=== PATIENT | male | born 1995 | race African-American/Black ===

== ENCOUNTER 2017-01-04 13:38 | Emergency (ER) | payer MEDICAID, OTHER ==
[~2017-01-04] VITALS: Ht 177.8 cm; Wt 86.2 kg
--- NOTE | 2017-01-04 15:00 | REP ---
LEFT KNEE SERIES: Five views of the left knee are performed. There is no evidence of acute fracture or dislocation. There an old healed fracture of the proximal left fibula. Rounded calcific density along the medial malleolus may represent an old fracture or accessory ossicle. IMPRESSION: No acute fracture or dislocation. Signed by Troy Chau MD 01/04/2017 03:57 P
[2017-01-04] MEDS ORDERED: IBUP80TA PO (15:18)
[2017-01-04 16:00] VITALS: BP 121/71
== END 2017-01-04 16:00 | disposition home or self-care (01) ==
LOC: M ED 15:13
DX: S83.92XA Sprain of unspecified site of left knee, initial encounter (principal); W10.8XXA Fall (on) (from) other stairs and steps, initial encounter; Y92.89 Other specified places as the place of occurrence of the external cause; Y93.01 Activity, walking, marching and hiking; Y99.9 Unspecified external cause status

== ENCOUNTER 2018-10-15 18:21 | Emergency (ER) | payer OTHER, SELFPAY ==
[~2018-10-15] VITALS: Ht 180.3 cm; Wt 90.9 kg
[~2018-10-15 18:21] MED LIST: IBUP80TA PO
[2018-10-15 19:17] LABS: BASO # 0.1 10^3/uL (0.0-0.2); BASO % 0.8 % (0.0-1.0); EOS # 0.3 10^3/uL (0.0-0.50); EOS % 5.1 % (0.0-3.0); HEMATOCRIT 50.8 % (42.0-52.0); HEMOGLOBIN 16.8 g/dl (13.5-17.5); LYMPH # 1.7 10^3/uL (1.5-6.5); LYMPH % 25.2 % (24.0-44.0); MEAN CORPUSCULAR HEMOGLOBIN 30.7 pg (27.0-33.0); MEAN CORPUSCULAR HGB CONC 33.1 g/dl (32.0-36.5); MEAN CORPUSCULAR VOLUME 92.9 fl (80.0-96.0); MONO # 0.7 10^3/uL (0.0-0.8); MONO % 10.1 % (0.0-5.0); NEUTROPHILS # 3.9 10^3/uL (1.8-7.7); NEUTROPHILS % 58.5 % (36.0-66.0); PLATELET COUNT, AUTOMATED 206 10^3/uL (150-450); RED BLOOD COUNT 5.47 10^6/uL (4.30-6.10); WHITE BLOOD COUNT 6.7 10^3/uL (4.0-10.0)
[2018-10-15] MEDS ORDERED: CEPHALEXIN 500 MG CAP PO ONE (19:30)
[2018-10-15] MEDS ORDERED: ADACEL/BOOSTRIX VACCINE (DIPHTH/PERTUSS/ACELL/TETANUS)0.5ML SYR (90715) IM ONE (19:30)
[2018-10-15] MEDS ORDERED: CLINDAMYCIN 900 MG in APPROPRIATE DILUENT 1 EA IV ONE (19:30)
[2018-10-15] MEDS ORDERED: NS 1,000 ML IV ONE (19:30)
[2018-10-15 19:42] LABS: BLOOD UREA NITROGEN 15 MG/DL (7-18); C REACTIVE PROTEIN QUANTITATIV < 0.30 MG/DL (0.00-0.30); CALCIUM LEVEL 8.9 MG/DL (8.5-10.1); CARBON DIOXIDE LEVEL 31 MEQ/L (21-32); CHLORIDE LEVEL 104 MEQ/L (98-107); CREATININE FOR GFR 1.22 MG/DL (0.70-1.30); GLOMERULAR FILTRATION RATE > 60.0 (>60); GLUCOSE, FASTING 87 MG/DL (70-100); POTASSIUM SERUM 4.4 MEQ/L (3.5-5.1); SODIUM LEVEL 139 MEQ/L (136-145)
[2018-10-15 19:43] LABS: ERYTHROCYTE SEDIMENTATION RATE 1 mm/hr (0-15)
[2018-10-15] MEDS ORDERED: KEFL500C17 PO (20:10)
[2018-10-15 20:35] VITALS: BP 126/56
== END 2018-10-15 20:39 | disposition home or self-care (01) ==
LOC: M ED 18:21
DX: L08.89 Other specified local infections of the skin and subcutaneous tissue (principal); F17.210 Nicotine dependence, cigarettes, uncomplicated

== ENCOUNTER 2019-04-09 23:51 | Emergency (ER) | payer SELFPAY ==
[~2019-04-09] VITALS: Ht 180.3 cm; Wt 90.9 kg
[~2019-04-09 23:51] MED LIST changes: +KEFL500C17 PO
[2019-04-10 00:33] LABS: HEMATOCRIT 49.7 % (42.0-52.0); HEMOGLOBIN 17.1 g/dl (13.5-17.5); MEAN CORPUSCULAR HEMOGLOBIN 31.9 pg (27.0-33.0); MEAN CORPUSCULAR HGB CONC 34.4 g/dl (32.0-36.5); MEAN CORPUSCULAR VOLUME 92.7 fl (80.0-96.0); PLATELET COUNT, AUTOMATED 178 10^3/uL (150-450); RED BLOOD COUNT 5.36 10^6/uL (4.30-6.10); WHITE BLOOD COUNT 6.9 10^3/uL (4.0-10.0)
[2019-04-10 01:05] LABS: ACETAMINOPHEN LEVEL < 2.0 UG/ML (10.0-30.0); ALBUMIN 4.3 GM/DL (3.2-5.2); ALT/SGPT 25 U/L (12-78); BILIRUBIN,DIRECT 0.2 MG/DL (0.0-0.2); BILIRUBIN,TOTAL 0.3 MG/DL (0.2-1.0); BLOOD UREA NITROGEN 13 MG/DL (7-18); CALCIUM LEVEL 8.2 MG/DL (8.5-10.1); CARBON DIOXIDE LEVEL 25 MEQ/L (21-32); CHLORIDE LEVEL 104 MEQ/L (98-107); CREATININE FOR GFR 1.13 MG/DL (0.70-1.30); ETHYL ALCOHOL (ETHANOL) 0.312 % (0.000-0.010); GLOMERULAR FILTRATION RATE > 60.0 (>60); GLUCOSE, FASTING 96 MG/DL (70-100); POTASSIUM SERUM 3.8 MEQ/L (3.5-5.1); SALICYLATE LEVEL 3.6 MG/DL (5.0-30.0); SODIUM LEVEL 141 MEQ/L (136-145); TOTAL PROTEIN 7.9 GM/DL (6.4-8.2)
[2019-04-10] MEDS ORDERED: NICOTINE 21MG/24HR 1 EA TRANSDERMAL TD ONE (01:15)
[2019-04-10 01:20] LABS: AMPHETAMINES LEVEL URINE NEGATIVE (NEGATIVE); BARBITURATES URINE NEGATIVE (NEGATIVE); BENZODIAZEPINES URINE NEGATIVE (NEGATIVE); CANNABINOIDS URINE NEGATIVE (NEGATIVE); COCAINE METABOLITE URINE NEGATIVE (NEGATIVE); METHADONE URINE NEGATIVE (NEGATIVE); OPIATES URINE NEGATIVE (NEGATIVE); PHENCYCLIDINE URINE NEGATIVE (NEGATIVE)
[2019-04-10] MEDS ORDERED: ACETAMINOPHEN TAB 650MG DOSE (2X325MG) PO ONE (12:30)
--- NOTE | 2019-04-10 16:48 | MHCRPDOC ---
[facility] Consultation Consultation DATE OF CONSULTATION: 04/10/19 New Patient Peterson Lopez Male Date of : N/A Date of Service: 04/10/2019 Chief Complaint Suicidal ideation while intoxicated. History of Present Illness Patient, a 23-year-old man, presents to [facility] after endorsing some passive suicidal ideation while intoxicated with alcohol. He had been subsequently detoxified on the ER clinical side where he then redacted any s uicidal ideation, reporting that at times when he drinks he can become overly filled with self-guilt and that he regularly is able to attend to his needs. He reports that he had no intention of acting on his suicidal thoughts. Review Of Systems Depression: The patient denies any episodes of unprovoked depressed mood associated with neurovegetative symptoms lasting longer than 2 weeks with symptoms present nearly everyday. Anxiety: The patient denies any excessive worry associated with physical symptoms. They deny any experience of discreet panic in the past. Jemima: The patient denies any episodes of euphoria/dysphoria associated with decreased need for sleep, hedonism, talkatively or impulsivity lasting longer than 5 days. Psychotic: The patient denies any experiences of auditory or visual hallucinations. They deny any episodes of paranoia or delusional thinking in the past Trauma: The patient denies any traumatic events associated with nightmares or intrusive thoughts. Borderline: The patient screens negative for borderline personality at this junction. Past Psychiatric History Patient reports a history of seeing a counselor for depression when he was a teenager, but no current outpatient follow-up. Denies any medication trials or psychiatric admissions. Denies any suicide attempts. Denies ownership of any guns. Allergies Please see below. Family Psychiatric History The patient denies/is unaware any history of mental health history including addictions and suicide. Social History Patient lives in the local area but is originally from [place]. He has a young son who is currently living in [place] with his ex. He currently is employed at [employer]. He reports a fairly good relationship with his mother and sister. He is currently moving in with his family members in order to be closer with them. He does report some difficulties in his relationship with his current girlfriend. His family are fairly supportive and are noted to be amenable to the patient returning home. Substance Abuse History Patient does report smoking tobacco roughly a pack a day and does report drinking every day roughly 1 to 2 beers a day with at times going over several drinks in a night. Denies any history of withdrawal. Denies any illicit drug use. Currently been seeking a counselor for outpatient substance abuse. Medical History Patient has no significant past medical history. Mental Status Examination General: Well dressed with good hygiene Speech: Spontaneous and fluid Thought processes: Linear and logical MSK: Smooth and coordinated gait, no signs of tremors or involuntary orofacial movements Thought content: Future orientated Abstract reasoning, and computation: Intact Description of associations: Intact Description of abnormal or psychotic thoughts: Denies any suicidal or homicidal ideation. Denies any auditory or visual hallucinations. Does not appear to be responding to internal stimuli. Does not appear to be endorsing any bizarre or paranoid ideation. Judgment: fair Insight: fair Orientation: Alert and orientated 3 Cognition: Grossly normal Recent and remote memory: Intact Attention span and concentration: Intact Fund of knowledge: Adequate Mood: "okay" Affect: Euthymic with a full range Diagnoses Alcohol use disorder, moderate. Assessment and Plan Patient, a 23-year-old man with a history of alcohol use, presents after reported suicidal ideation. However, subsequent resolution of the alcohol intoxication resolved his suicidal ideation suggesting primarily the suicidal thoughts being a part of intoxication. It was reported to this provider from the ER that his sister and mother were fairly amenable to the patient returning home as he has resolved. His friend had brought him into the ER. In my clinical judgment at this time, the patient's risk factors for suicide are low. He does not have any weapons and has returned to his baseline state. It is unclear if he has any primary mental health diagnoses and is primarily related to substance at this point. Patient is motivated and has a reasonable safety plan. He will be able to follow up with an outpatient provider. He does not meet criteria for in- patient psychiatric admission and declines voluntary admission politely at this time. Time Spent 45 minutes [id number] time. Wednesday Vital Signs Vital Signs Date Time Temp Pulse Resp B/P (MAP) Pulse Ox O2 Delivery O2 Flow Rate FiO2 04/10/19 06:58 97.2 90 14 115/60 (78) 95 Room Air Laboratory Data 24H Labs Laboratory Tests 2 04/10/19 00:25: Nucleated Red Blood Cells % (auto) 0.0, Anion Gap 12, Glomerular Filtration Rate > 60.0, Calcium Level 8.2L, Aspartate Amino Transf (AST/SGOT) 29, Alanine Aminotransferase (ALT/SGPT) 25, Alkaline Phosphatase 52, Total Bilirubin 0.3, Direct Bilirubin 0.2, Total Protein 7.9, Albumin 4.3, Albumin/Globulin Ratio 1.19, Thyroid Stimulating Hormone (TSH) 1.130, Salicylates Level 3.6L, Urine Amphetamines Screen NEGATIVE, Urine Benzodiazepines Screen NEGATIVE, Urine Opiates Screen NEGATIVE, Urine Methadone Screen NEGATIVE, Acetaminophen Level < 2.0L, Urine Barbiturates Screen NEGATIVE, Urine Phencyclidine Screen NEGATIVE, Urine Cocaine Metabolite Screen NEGATIVE, Urine Cannabinoids Screen NEGATIVE, Ethyl Alcohol Level 0.312H Allergies Coded Allergies: No Known Allergies (Unverified , 01/04/17) LINDA GARCIA DO Apr 10, 2019 16:48
[2019-04-10 17:10] VITALS: BP 142/86
== END 2019-04-10 17:35 | disposition home or self-care (01) ==
LOC: M ED 23:51
DX: F10.129 Alcohol abuse with intoxication, unspecified (principal); Z72.0 Tobacco use
CPT/HCPCS: 80048; 80076; 80307; 84443; 85027; 99284; G0480

== ENCOUNTER 2019-10-31 22:50 | Emergency (ER) | payer SELFPAY ==
[~2019-10-31] VITALS: Ht 180.3 cm; Wt 87.7 kg
[2019-10-31 22:50] VITALS: BP 162/81
[2019-10-31] MEDS ORDERED: CEPHALEXIN 500 MG CAP PO ONE (23:45)
[2019-10-31] MEDS ORDERED: KEFL500C17 PO (23:47)
[2019-10-31] MEDS ORDERED: NYST1POW9 TOP (23:47)
== END 2019-11-01 00:23 | disposition home or self-care (01) ==
LOC: M ED 22:50
DX: B35.6 Tinea cruris (principal); B35.3 Tinea pedis; Z79.899 Other long term (current) drug therapy

== ENCOUNTER 2020-07-27 02:57 | Emergency (ER) | payer SELFPAY ==
[~2020-07-27] VITALS: Ht 177.8 cm; Wt 94.8 kg
[~2020-07-27 02:57] MED LIST changes: +NYST1POW9 TOP
[2020-07-27] MEDS ORDERED: NS 1,000 ML IV ONE (03:00)
[2020-07-27] MEDS ORDERED: NALOXONE 2MG/2ML SYRINGE (J2310 PER 1MG) IV ONE (03:00)
[2020-07-27 03:26] LABS: BASO % 0.6 % (0.0-1.0); EOS # 0.2 10^3/uL (0.0-0.5); EOS % 4.1 % (0.0-3.0); HEMATOCRIT 45.5 % (42.0-52.0); LYMPH # 1.7 10^3/uL (1.5-5.0); LYMPH % 35.5 % (24.0-44.0); MEAN CORPUSCULAR HEMOGLOBIN 30.2 pg (27.0-33.0); MEAN CORPUSCULAR VOLUME 91.7 fl (80.0-96.0); MONO # 0.5 10^3/uL (0.0-0.8); MONO % 10.5 % (0.0-5.0); NEUTROPHILS # 2.3 10^3/uL (1.5-8.5); NEUTROPHILS % 49.1 % (36.0-66.0); PLATELET COUNT, AUTOMATED 191 10^3/uL (150-450); RED BLOOD COUNT 4.96 10^6/uL (4.30-6.10); WHITE BLOOD COUNT 4.7 10^3/uL (4.0-10.0)
[2020-07-27] MEDS ORDERED: NALOXONE 2MG/2ML SYRINGE (J2310 PER 1MG) IV STA (03:29)
[2020-07-27 03:45] LABS: AMPHETAMINES LEVEL URINE NEGATIVE (NEGATIVE); BARBITURATES URINE NEGATIVE (NEGATIVE); BENZODIAZEPINES URINE NEGATIVE (NEGATIVE); CANNABINOIDS URINE NEGATIVE (NEGATIVE); COCAINE METABOLITE URINE NEGATIVE (NEGATIVE); METHADONE URINE NEGATIVE (NEGATIVE); OPIATES URINE NEGATIVE (NEGATIVE); PHENCYCLIDINE URINE NEGATIVE (NEGATIVE)
[2020-07-27 04:07] LABS: ACETAMINOPHEN LEVEL < 2.0 UG/ML (10.0-30.0); ALT/SGPT 42 U/L (12-78); BILIRUBIN,DIRECT 0.1 MG/DL (0.0-0.2); BILIRUBIN,TOTAL 0.3 MG/DL (0.2-1.0); BLOOD UREA NITROGEN 13 MG/DL (7-18); CALCIUM LEVEL 7.9 MG/DL (8.5-10.1); CARBON DIOXIDE LEVEL 26 MEQ/L (21-32); CHLORIDE LEVEL 107 MEQ/L (98-107); CPK CREATINE PHOSPHOKINASE 650 U/L (39-308); CREATININE FOR GFR 1.08 MG/DL (0.70-1.30); ETHYL ALCOHOL (ETHANOL) 0.381 % (0.000-0.010); GLOMERULAR FILTRATION RATE > 60.0 (>60); GLUCOSE, FASTING 102 MG/DL (70-100); POTASSIUM SERUM 3.7 MEQ/L (3.5-5.1); SALICYLATE LEVEL 3.2 MG/DL (5.0-30.0); SODIUM LEVEL 142 MEQ/L (136-145); TOTAL PROTEIN 7.3 GM/DL (6.4-8.2)
[2020-07-27 12:42] VITALS: BP 128/60
--- NOTE | 2020-07-27 16:10 | ECGEPIP ---
[facility] - ED Test Date: 2020-07-27 Pat Name: JONI NELSON Department: Room: - Gender: Male Translator Deaf: : 1995 Requested By: LOU Quintero Order Number: [id number] Reading MD: Amara Jamil Measurements Intervals [place] Rate: 94 P: 63 ME: 192 QRS: 7 QRSD: 96 T: 39 QT: 347 QTc: 435 Interpretive Statements SINUS RHYTHM NONSPECIFIC ST T WAVE CHANGES NO PRIOR ECG FOR COMPARISON Electronically Signed on 07-27-2020 16:10:20 EDT by Amara Jamil
== END 2020-07-27 12:44 | disposition home or self-care (01) ==
LOC: M ED 02:57
DX: F10.129 Alcohol abuse with intoxication, unspecified (principal); Y90.1 Blood alcohol level of 20-39 mg/100 ml; J96.91 Respiratory failure, unspecified with hypoxia
CPT/HCPCS: 36600; 80048; 80076; 80307; 82550; 82803; 84443; 85025; 93005; 93041; 96361; 96374; 99291; G0480; J2310

== ENCOUNTER → 2020-12-27 | Outpatient (CLI) | payer SELFPAY | LOC: M LABSMTC 14:07 | PROVIDERS: ATTEND Family Medicine | DX: Z20.822 Contact with and (suspected) exposure to COVID-19 (principal) | CPT/HCPCS: C9803; U0003 ==